=== PATIENT | female | born 1960 | race African-American/Black ===

== ENCOUNTER 2018-12-07 08:40 | Day surgery (SDC) | payer OTHER ==
[~2018-12-07] VITALS: Ht 166.4 cm; Wt 104.3 kg
[2018-12-07] VITALS (10 sets, daily range): BP systolic 108–141; BP diastolic 58–76
--- NOTE | 2018-12-07 07:41 | Pre-Procedure Note/Attestation ---
Pre-Procedure Note/Attestation Complete Prior to Procedure Planned Procedure: right Procedure Narrative: knee diagnosctic arthroscopy, possible menesctomy/synovectomy Indications for Procedure Pre-Operative Diagnosis: right knee internal dragement Attestation I attest that I discussed the nature of the procedure; its benefits; risks and complications; and alternatives (and the risks and benefits of such alternatives ), prior to the procedure, with the patient (or the patient's legal career services representative). I attest that, if there was a reasonable possibility of needing a blood transfusion, the patient (or the patient's legal career services representative) was given the [facility] standardized written summary, pursuant to the Luis Abby Blood Safety Act ([place] Health and Safety Code # 1645, as amended). I attest that I re-evaluated the patient just prior to the surgery and that there has been no change in the patient's H&P, except as documented below: Pk Rodriguez MD Dec 07, 2018 07:41
--- NOTE | 2018-12-07 07:42 | Operative Note - PDOC ---
Operative Note Operative Note Pre-op Diagnosis: Left knee internal dragement Procedure: see op report Post-op Diagnosis: same as pre-op plus Operative Findings: consistent w/pre-op dx studies Anesthesia: MAC Specimen: none Complications: none Condition: stable Estimated Blood Loss: none Implant(s) used?: No Pk Rodriguez MD Dec 07, 2018 07:42
[~2018-12-07 08:40] MED LIST: D5 1/2NS 1,000 ML IV SCH; HYDROcodone/Acetamin 5/325 tab ORAL PRN; HYDROmorphone 1mg/ml Carpuject SUBQ PRN; IBUPROFEN600 MG ORAL; Tylenol #3 tab (300mg/30mg) ORAL PRN; ceFAZolin 1gm IVPB IVPB ONE; oxyCONTIN 20mg tab ORAL ONE
[2018-12-07] MEDS ORDERED: oxyCONTIN 20mg tab ORAL ONE (10:06)
--- NOTE | 2018-12-07 11:34 | Anethesia Preoperative Eval ---
Ailin Phillips CRNA 12/07/18 1134: Anesthesia Pre-op PMH/ROS General Date of Evaluation: Dec 07, 2018 Anesthesiologist: Ailin Phillips CRNA ASA Score: ASA 2 Mallampati Score Class I : Soft palate, uvula, fauces, pillars visible Class II: Soft palate, uvula, fauces visible Class III: Soft palate, base of uvula visible Class IV: Only hard plate visible Family History: no anesthesia problems Allergies: Coded Allergies: LATEX (Verified Allergy, Severe, HIVES, 12/05/18) SULFA (SULFONAMIDE ANTIBIOTICS) (Verified Allergy, Severe, TONGUE SWELL, ) Medications: see eMAR Patient NPO?: Yes Past Medical History Cardiovascular: Denies: HTN, CAD, [place], valve dz, arrhythmia, other - hypercholesterolemia Pulmonary: Denies: asthma, COPD, [place], other Gastrointestinal/Genitourinary: Denies: GERD, CRI, ESRD, other Neurologic/Psychiatric: Denies: dementia, CVA, depression/anxiety, TIA, other Endocrine: Denies: DM, hypothyroidism, steroids, other HEENT: Denies: cataract (L), cataract (R), glaucoma, [place] (L), [place] (R), other Hematology/Immune: Denies: anemia, DVT, bleeding disorder, other Musculoskeletal/Integumentary: Reports: other - RT knee derangement, Chronic LBP s/p epidural injection Other: obesity - Morbid obesity BMI 37 PMH Narrative: as noted above Anesthesia Pre-op Phys. Exam Physician Exam Last Vital Signs Date Time Temp Pulse Resp B/P (MAP) Pulse Ox O2 Delivery O2 Flow Rate FiO2 12/07/18 09:45 Room Air 12/07/18 09:35 97.1 67 18 118/75 97 Al Chen MD 12/07/18 1511: Anesthesia Pre-op PMH/ROS General Date of Evaluation: Dec 07, 2018 Time of Evaluation: 14:30 Anesthesiologist: Gustavo ASA Score: ASA 3 Mallampati Classification: Class III Surgeon: Michael Diagnosis: L knee pain Surgical Procedure: L knee scope Anesthesia History: none Family History: no anesthesia problems Allergies: Coded Allergies: LATEX (Verified Allergy, Severe, HIVES, 12/05/18) SULFA (SULFONAMIDE ANTIBIOTICS) (Verified Allergy, Severe, TONGUE SWELL, ) Patient NPO?: Yes Past Medical History Cardiovascular: Reports: HTN; Denies: CAD, [place], valve dz, arrhythmia, other Pulmonary: Reports: LUCIANA; Denies: asthma, COPD, other Gastrointestinal/Genitourinary: Reports: GERD; Denies: CRI, ESRD, other Neurologic/Psychiatric: Reports: other - chronic pain; Denies: dementia, CVA, depression/anxiety, TIA Endocrine: Denies: DM, hypothyroidism, steroids, other HEENT: Denies: cataract (L), cataract (R), glaucoma, [place] (L), [place] (R), other Hematology/Immune: Reports: anemia - mild; Denies: DVT, bleeding disorder, other Musculoskeletal/Integumentary: Reports: DJD; Denies: OA, RA, DDD, edema, other Other: obesity PMH Narrative: as above PSxH Narrative: Epidurals Anesthesia Pre-op Phys. Exam Physician Exam Constitutional: NAD Neurologic: CN 2-12 intact Cardiovascular: no M/R/G Respiratory: CTA Gastrointestinal: other - obesity Airway Exam Mallampati Score: Class III MO: limited Neck: short Teeth: missing Dentures: no upper, no lower Anesthesia Pre-op A/P Labs see chart Studies Pre-op Studies: EKG - NSR Risk Assessment & Plan Assessment: ASA 3 Plan: GA with CALERO Status Change Before Surgery: No Pre-Antibiotics Drug: Ancef 2gr Given Within 1 Hr of Incision: Yes Time Given: 14:52 Ailin Phillips CRNA Dec 07, 2018 11:34 Al Chen MD Dec 07, 2018 15:11
[2018-12-07] MEDS ORDERED: Ketorolac 30mg Inj ONE ×2 (12:20→14:29)
[2018-12-07] MEDS ORDERED: Bupivacaine 0.25% Inj 30ml INJ ONE (12:20)
[2018-12-07] MEDS ORDERED: Kenalog-40 1ml Vial ONE (12:20)
[2018-12-07] MEDS ORDERED: Duramorph PF 5mg/10ml amp ONE (14:13)
[2018-12-07] MEDS ORDERED: Lidocaine 1% 10mg/ml/Epi 0.005mg/ml 30ml vial INJ ONE (14:13)
[2018-12-07] MEDS ORDERED: Midazolam 2mg/2ml Inj ONE (14:25)
[2018-12-07] MEDS ORDERED: fentaNYL 100 mcg/2 mL IV ONE (14:25)
[2018-12-07] MEDS ORDERED: Lidocaine 1% MPF 10mg/ml 5ml ONE (14:29)
[2018-12-07] MEDS ORDERED: Propofol 200mg/20ml IV ONE (14:29)
[2018-12-07] MEDS ORDERED: LR 1000ml ONE (14:30)
[2018-12-07] MEDS ORDERED: NS Irrig 2000ml IRRIG ONE (14:30)
[2018-12-07] MEDS ORDERED: Duramorph PF 5mg/10ml amp IT ONE ×2 (14:50→15:47)
[2018-12-07] MEDS ORDERED: NS Irrig 4000ml IRRIG ONE ×2 (14:50→15:47)
[2018-12-07] MEDS ORDERED: LR 1000ml 1,000 ML IVLG SCH (15:11)
[2018-12-07] MEDS ORDERED: Hydromorphone 0.5mg/0.5ml inj IVP PRN (15:15)
[2018-12-07] MEDS ORDERED: DiphenhydrAMINE 50mg/ml Inj IVP PRN (15:15)
--- NOTE | 2018-12-07 15:34 | Immediate Post-Op Evaluation ---
Immediate Post-Op Evalulation Immediate Post-Op Evalulation Procedure: L knee arthroscopy meniscectomy Date of Evaluation: Dec 07, 2018 Time of Evaluation: 15:33 IV Fluids: 700 Blood Products: none Estimated Blood Loss: min Urinary Output: none Blood Pressure Systolic: 106 Blood Pressure Diastolic: 58 Pulse Rate: 74 Respiratory Rate: 20 O2 Sat by Pulse Oximetry: 98 Temperature (Fahrenheit): 97.6 Pain Score (1-10): 2 Nausea: No Vomiting: No Complications none Patient Status: reacts, patent, none Hydration Status: adequate Al Chen MD Dec 07, 2018 15:34
--- NOTE | 2018-12-07 17:08 | 48 Hour Post Anesthesia Eval ---
Post Anesthesia Evaluation Procedure: L knee arthroscopy meniscectomy Date of Evaluation: Dec 07, 2018 Time of Evaluation: 17:07 Blood Pressure Systolic: 108 0: 75 Pulse Rate: 68 Respiratory Rate: 20 Temperature (Fahrenheit): 97.5 O2 Sat by Pulse Oximetry: 98 Airway: patent Nausea: No Vomiting: No Pain Intensity: 1 Hydration Status: adequate Cardiopulmonary Status: stable Mental Status/LOC: patient returned to baseline Follow-up Care/Observations: n/a Post-Anesthesia Complications: none Follow-up care needed: ready to discharge Al Chen MD Dec 07, 2018 17:08
--- NOTE | 2018-12-08 | Operative Note - Dictated ---
DATE OF OPERATION: 12/07/2018 PREOPERATIVE DIAGNOSIS: Left knee internal derangement. POSTOPERATIVE DIAGNOSIS: 1. Hypertrophic fat pad/synovial tissue, medial patellofemoral compartment. 2. Grade 2 chondral damage, medial femoral condyle. PROCEDURES: 1. Left knee diagnostic arthroscopy. 2. Left knee medial and patellofemoral compartment synovectomy/excision of the fat pad. SURGEON: Pk Rodriguez M.D. ANESTHESIA: General. INDICATION FOR PROCEDURE: The patient is a pleasant female who has had progressive left knee pain. She had MRI, which showed of the knee. She failed conservative treatment. She had continued mechanical symptoms and pain, therefore elected to undergo diagnostic arthroscopy and possible meniscectomy, synovectomy and chondroplasty based on intraoperative findings. Risks, limitations, expectations, and complications of procedure were discussed in detail. All questions addressed. DESCRIPTION OF PROCEDURE: After informed consent was obtained, the patient was brought to the operative room. The patient was placed under general anesthesia. Time-out was performed. Left leg was prepped and draped in a sterile manner. An inferolateral stab incision was then made. Trocar introduced in the knee joint. There is hypertrophic synovial tissue and fat pad making it difficult to visualize patellofemoral compartment. Medial gutter was entered, free of any loose bodies. Medial compartment was entered. Medial working portal was established. Meniscus probed and noted to be intact. Synovectomy and excision of fat pad, was extended in the intercondylar notch and lateral compartment. ACL was probed and noted to be intact. Lateral compartment was entered, free of any meniscal chondral damage. Camera was then placed in the patellofemoral compartment. The excision of the fat pad and synovectomy was completed. Once that was done, there was a grade 2 chondral damage measured to size 9 on the distal medial femoral condyle. There was no gross chondral flaps. At this point, the instruments were removed. Portal sites were closed with 3-0 Monocryl sutures. Steri-Strips and a sterile dressing were applied. The patient was awoken and taken to recovery room with stable vital signs. ESTIMATED BLOOD LOSS: None. COMPLICATIONS: None. SPECIMENS: None. IMPLANTS: None. Pk Rodriguez M.D. DR: Zion JOB#: [id number] CC: AUDREY
== END 2018-12-07 17:15 | disposition home or self-care (01) ==
LOC: SUR 08:40
DX: M79.4 Hypertrophy of (infrapatellar) fat pad (principal); M67.262 Synovial hypertrophy, not elsewhere classified, left lower leg; Z88.2 Allergy status to sulfonamides; Z91.040 Latex allergy status; E66.01 Morbid (severe) obesity due to excess calories; I10 Essential (primary) hypertension; G47.33 Obstructive sleep apnea (adult) (pediatric); K21.9 Gastro-esophageal reflux disease without esophagitis; M19.90 Unspecified osteoarthritis, unspecified site; Z68.37 Body mass index [BMI] 37.0-37.9, adult
CPT/HCPCS: 29876; J0690; J1885; J2250; J2704; J3010; J3301; J3490; 94003; 94150

== ENCOUNTER 2019-02-01 06:29 | Day surgery (SDC) | payer OTHER ==
[2019-02-01] VITALS (12 sets, daily range): BP systolic 115–125; BP diastolic 68–79
[~2019-02-01] VITALS: Ht 165.1 cm; Wt 104.3 kg
[~2019-02-01 06:29] MED LIST changes: -D5 1/2NS 1,000 ML IV SCH; -HYDROcodone/Acetamin 5/325 tab ORAL PRN; -HYDROmorphone 1mg/ml Carpuject SUBQ PRN; -Tylenol #3 tab (300mg/30mg) ORAL PRN; +celeBREX 200mg Cap **SURGERY PATIENTS ONLY ORAL ONE
[2019-02-01] MEDS ORDERED: Duramorph PF 5mg/10ml amp ONE (08:46)
[2019-02-01] MEDS ORDERED: Ketorolac 30mg Inj ONE (08:46)
[2019-02-01] MEDS ORDERED: Kenalog-40 1ml Vial ONE (08:46)
[2019-02-01] MEDS ORDERED: Lidocaine 1% 10mg/ml/Epi 0.005mg/ml 30ml vial INJ ONE (08:47)
[2019-02-01] MEDS ORDERED: Bupivacaine 0.25% Inj 30ml INJ ONE (08:47)
[2019-02-01] MEDS ORDERED: Sterile Water Irrig 1000ml IRRIG ONE (09:00)
[2019-02-01] MEDS ORDERED: fentaNYL 100 mcg/2 mL IV ONE (09:01)
[2019-02-01] MEDS ORDERED: Acetaminophen (Non formulary) 100 ML IV ONE (09:15)
[2019-02-01] MEDS ORDERED: NS Irrig 4000ml IRRIG ONE (09:20)
[2019-02-01] MEDS ORDERED: Duramorph PF 5mg/10ml amp IT ONE ×2 (09:20)
[2019-02-01] MEDS ORDERED: fentaNYL 100 mcg/2 mL IV PRN (09:30)
[2019-02-01] MEDS ORDERED: Metoclopramide 10mg/2ml Inj IVP PRN (09:30)
[2019-02-01] MEDS ORDERED: Propofol 200mg/20ml IV ONE (09:38)
[2019-02-01] MEDS ORDERED: Metoclopramide 10mg/2ml Inj ONE (09:38)
[2019-02-01] MEDS ORDERED: Lidocaine 1% MPF 10mg/ml 5ml ONE (09:38)
--- NOTE | 2019-02-01 09:47 | Pre-Procedure Note/Attestation ---
Pre-Procedure Note/Attestation Complete Prior to Procedure Planned Procedure: right Procedure Narrative: knee diagnostic arthroscopy, possible menisectomy, synovectomy Indications for Procedure Pre-Operative Diagnosis: right knee internal derangement possible menisecus tear Attestation I attest that I discussed the nature of the procedure; its benefits; risks and complications; and alternatives (and the risks and benefits of such alternatives ), prior to the procedure, with the patient (or the patient's legal traffic workforce representative). I attest that, if there was a reasonable possibility of needing a blood transfusion, the patient (or the patient's legal traffic workforce representative) was given the [facility] standardized written summary, pursuant to the Luis Abby Blood Safety Act ([place] Health and Safety Code # 1645, as amended). I attest that I re-evaluated the patient just prior to the surgery and that there has been no change in the patient's H&P, except as documented below: Pk Rodriguez MD Feb 01, 2019 09:47
--- NOTE | 2019-02-01 09:47 | Operative Note - PDOC ---
Operative Note Operative Note Pre-op Diagnosis: right knee internal derangement possible menisecus tear Procedure: see op report Post-op Diagnosis: same as pre-op plus Operative Findings: consistent w/pre-op dx studies Anesthesia: general, regional Specimen: none Complications: none Estimated Blood Loss: none Implant(s) used?: No Pk Rodriguez MD Feb 01, 2019 09:47
--- NOTE | 2019-02-01 09:54 | Immediate Post-Op Evaluation ---
Immediate Post-Op Evalulation Immediate Post-Op Evalulation Procedure: right knee scope Date of Evaluation: Feb 01, 2019 Time of Evaluation: 09:53 IV Fluids: 500 Blood Pressure Systolic: 125 Blood Pressure Diastolic: 71 Pulse Rate: 86 Respiratory Rate: 14 O2 Sat by Pulse Oximetry: 98 Temperature (Fahrenheit): 99.4 Nausea: No Vomiting: No Complications none Patient Status: awake, reacts, patent Drug: ancef Given Within 1 Hr of Incision: Yes Time Given: 09:55 Brittney Arellano CRNA Feb 01, 2019 09:54
--- NOTE | 2019-02-01 09:57 | Anethesia Preoperative Eval ---
Anesthesia Pre-op PMH/ROS General Date of Evaluation: Feb 01, 2019 Time of Evaluation: 09:00 Anesthesiologist: sarah ASA Score: ASA 2 Mallampati Score Class I : Soft palate, uvula, fauces, pillars visible Class II: Soft palate, uvula, fauces visible Class III: Soft palate, base of uvula visible Class IV: Only hard plate visible Mallampati Classification: Class II Surgeon: claritza Diagnosis: knee pain Surgical Procedure: right knee scope Anesthesia History: none Family History: no anesthesia problems Allergies: Coded Allergies: LATEX (Verified Allergy, Severe, HIVES, 12/05/18) SULFA (SULFONAMIDE ANTIBIOTICS) (Verified Allergy, Severe, TONGUE SWELL, ) OXYCODONE (Verified Adverse Reaction, Severe, nausea,vomiting, , 01/31/19) Medications: see eMAR Patient NPO?: Yes NPO Date: Feb 01, 2019 NPO Time: 00:01 Past Medical History Cardiovascular: Reports: HTN; Denies: CAD, [place], valve dz, arrhythmia, other Pulmonary: Denies: asthma, COPD, LUC[place]NA, other Gastrointestinal/Genitourinary: Reports: GERD; Denies: CRI, ESRD, other Neurologic/Psychiatric: Denies: dementia, CVA, depression/anxiety, TIA, other Endocrine: Denies: DM, hypothyroidism, steroids, other HEENT: Denies: cataract (L), cataract (R), glaucoma, [place] (L), [place] (R), other Hematology/Immune: Denies: anemia, DVT, bleeding disorder, other Musculoskeletal/Integumentary: Reports: other - chronic pain; Denies: OA, RA, DJD, DDD, edema Anesthesia Pre-op Phys. Exam Physician Exam Last Vital Signs Date Time Temp Pulse Resp B/P (MAP) Pulse Ox O2 Delivery O2 Flow Rate FiO2 02/01/19 07:46 Room Air 02/01/19 07:27 97.7 61 18 119/71 99 Neurologic: CN 2-12 intact Cardiovascular: RRR Respiratory: CTA Gastrointestinal: S/NT/ND Airway Exam Mallampati Classification 2 Mallampati Score: Class II MO: full ROM: full Dentures: no upper, no lower Anesthesia Pre-op A/P Studies Pre-op Studies: EKG - sr Risk Assessment & Plan Assessment: denies cp /sob Plan: general Pre-Antibiotics Drug: ancef Given Within 1 Hr of Incision: Yes Time Given: 09:08 Brittney Arellano CRNA Feb 01, 2019 09:57
--- NOTE | 2019-02-01 15:13 | 48 Hour Post Anesthesia Eval ---
Post Anesthesia Evaluation Procedure: right knee scope Date of Evaluation: Feb 01, 2019 Time of Evaluation: 15:13 Blood Pressure Systolic: 118 0: 72 Pulse Rate: 70 Respiratory Rate: 14 O2 Sat by Pulse Oximetry: 98 Airway: patent Nausea: No Vomiting: No Hydration Status: adequate Cardiopulmonary Status: stable Mental Status/LOC: patient returned to baseline Follow-up Care/Observations: na Post-Anesthesia Complications: none Follow-up care needed: N/A Brittney Arellano CRNA Feb 01, 2019 15:13
[2019-02-01] MEDS ORDERED: HYDROmorphone 1mg/ml Carpuject SUBQ PRN (17:31)
[2019-02-01] MEDS ORDERED: HYDROcodone/Acetamin 5/325 tab ORAL PRN (17:31)
[2019-02-01] MEDS ORDERED: D5 1/2NS 1,000 ML IV SCH (17:31)
[2019-02-01] MEDS ORDERED: Tylenol #3 tab (300mg/30mg) ORAL PRN (17:31)
--- NOTE | 2019-02-01 20:45 | Operative Note - Dictated ---
DATE OF OPERATION: 02/01/2019 PREOPERATIVE DIAGNOSES: 1. Right knee medial meniscus tear. 2. Hypertrophic fat-pad syndrome. POSTOPERATIVE DIAGNOSES: 1. Right knee posterior horn of medial meniscus tear. 2. Hypertrophic synovial tissue of medial, lateral, and patellofemoral compartments. 3. A 2.5 cm lesion along the posterior medial femoral condyle. 4. Grade 3 chondral damage, distal to medial femoral condyle. 5. Grade 2 chondral damage, patellofemoral compartment. 6. Partial tear of posterior horn of lateral meniscus. PROCEDURE: 1. Right knee diagnostic arthroscopy and partial medial and lateral meniscectomy. 2. Synovectomy, lateral and patellofemoral compartments. SURGEON: Pk Rodriguez M.D. ANESTHESIA: General. INDICATION FOR PROCEDURE: The patient is a pleasant 58-year-old female, who had an injury to her right knee, had MRI which showed possible meniscal tear, had continued issues. She elected to undergo right knee diagnostic arthroscopy with possible meniscectomy, synovectomy. Risks, limitations, expectations, and complications of procedure were discussed in detail. All questions were addressed. DESCRIPTION OF PROCEDURE: After informed consent was obtained, the patient was brought to the operating room and placed the patient under general anesthesia. The right leg was prepped and draped in a sterile manner. Time-out was performed. Ancef was administered. Inferolateral stab incision was then made. Trocar was introduced into the knee joint. There was hypertrophic synovial tissue beneath the patellofemoral compartment as well as grade 2 to grade 3 chondral damage of the patellar compartment. Medial compartment was entered. There was hypertrophic synovial tissue medially. Medial working portal was established. The medial compartment was somewhat tight. There was concern for undersurface tear of the posterior horn of medial meniscus once it was probed. A curved shaver was then placed on the undersurface of the meniscus and a partial meniscectomy was performed. Once that was done, synovectomy of the anterior compartment, medial compartment, intercondylar notch, and lateral compartment was performed. ACL was was noted to be intact. Lateral compartment was entered. There was a small tear of the posterior horn of lateral meniscus. Once that was completed, attention was turned towards the medial compartment. There was a chondral fissure that was full thickness that measured about 2.5 cm in a curvilinear pattern of the posterior femoral condyle. It was not grossly loose. Additionally, there was a 5 mm area of grade 3 chondral damage in a circular pattern of the distal femoral condyle. Camera was then repositioned in the patellofemoral compartment. Synovectomy was completed. Instruments were removed. Portal sites were closed using 3-0 Monocryl sutures. Steri-Strips and a sterile dressing were applied. The patient was awoken and taken to recovery room with stable vital signs. ESTIMATED BLOOD LOSS: None. COMPLICATIONS: None. SPECIMENS: None. IMPLANTS: None. Pk Rodriguez M.D. DR: Zion JOB#: [id number] CC:
== END 2019-02-01 11:45 | disposition home or self-care (01) ==
LOC: SUR 06:29
DX: S83.241A Other tear of medial meniscus, current injury, right knee, initial encounter (principal); M67.261 Synovial hypertrophy, not elsewhere classified, right lower leg; S83.281A Other tear of lateral meniscus, current injury, right knee, initial encounter; I10 Essential (primary) hypertension; K21.9 Gastro-esophageal reflux disease without esophagitis; Z88.2 Allergy status to sulfonamides; Z91.040 Latex allergy status; Z88.6 Allergy status to analgesic agent; X58.XXXA Exposure to other specified factors, initial encounter; Y92.9 Unspecified place or not applicable
CPT/HCPCS: 29876; 29880; J0690; J1885; J2405; J2704; J2765; J3010; J3301; J3490; 94003; 94150